=== PATIENT | male | born 1955 | race Caucasian/White ===

== ENCOUNTER → 2016-08-29 12:20 | Outpatient (CLI) | payer OTHER | END | disposition home or self-care (01) | LOC: D.CT 08-27 14:30 → D.US 08-27 15:00 | DX: H53.2 Diplopia (principal); I63.9 Cerebral infarction, unspecified ==

== ENCOUNTER → 2017-02-23 12:17 | Outpatient (CLI) | payer OTHER | END | disposition home or self-care (01) | LOC: D.RAD 12:17 | DX: M46.92 Unspecified inflammatory spondylopathy, cervical region (principal) ==

== ENCOUNTER → 2017-09-16 08:52 | Outpatient (CLI) | payer OTHER | END | disposition home or self-care (01) | LOC: D.RAD 08:52 | DX: R13.10 Dysphagia, unspecified (principal) ==

== ENCOUNTER → 2019-01-19 08:57 | Outpatient (CLI) | payer MEDICARE, OTHER | END | disposition home or self-care (01) | LOC: D.RAD 08:57 | PROVIDERS: ATTEND Family Medicine | DX: R13.10 Dysphagia, unspecified (principal) ==